=== PATIENT | male | born 1990 | race Caucasian/White ===

== ENCOUNTER 2024-09-26 02:21 | Emergency (ER) | payer SELFPAY ==
[~2024-09-26] VITALS: Ht 172.7 cm; Wt 136.1 kg
[2024-09-26 02:31] VITALS: RESP 18; TEMP 98.3
[2024-09-26] MEDS: ONDANSETRON HCL INJ 2MG/ML 2ML 2 MG/ML VIAL IV STA (02:43)
[2024-09-26 03:02] LABS: BASOPHILS % 0.3 % (0.0-1.0); EOSINOPHILS # (AUTO) 0.2 (0.0-0.4); EOSINOPHILS % 1.5 % (0.0-6.0); HEMATOCRIT 41.1 % (38.2-49.6); HEMOGLOBIN 13.5 g/dL (14.0-18.0); LYMPHOCYTES # (AUTO) 1.6 (1.0-3.2); LYMPHOCYTES % 14.9 % (18.0-39.1); MEAN CORPUSCULAR HEMOGLOBIN 28.8 pg (28-32); MEAN CORPUSCULAR HGB CONC 32.8 g/dL (31-35); MEAN CORPUSCULAR VOLUME 87.6 fL (81-99); MONOCYTES # (AUTO) 0.8 (0.2-0.8); MONOCYTES % 7.6 % (4.4-11.3); NEUTROPHILS # (AUTO) 7.9 (2.1-6.9); NEUTROPHILS % 75.4 % (38.7-80.0); PLATELET COUNT 412 x10e3/uL (140-360); RED BLOOD COUNT 4.69 x10e6/uL (4.3-5.7); RED CELL DISTRIBUTION WIDTH 13.9 % (11.7-14.4); WHITE BLOOD COUNT 10.44 x10e3/uL (4.8-10.8)
[2024-09-26 03:17] LABS: ALBUMIN 3.8 g/dL (3.5-5.0); ALBUMIN/GLOBULIN RATIO 1.2 (0.8-2.0); ANION GAP 17.1 mmol/L (8-16); BILIRUBIN,TOTAL 0.2 mg/dL (0.2-1.2); CALCIUM 8.7 mg/dL (8.4-10.2); CREATININE, SERUM 0.74 mg/dL (0.72-1.25); POTASSIUM 4.1 mmol/L (3.5-5.1); TOTAL PROTEIN 7.1 g/dL (6.5-8.1)
[2024-09-26 03:23] LABS: TROPONIN I 0.003 ng/mL (0-0.300)
[2024-09-26 03:30] VITALS: PULSE 83
[2024-09-26] MEDS ORDERED: VENTOLIN HFA18 GM INH (03:50)
[2024-09-26] MEDS ORDERED: ONDANSETRON ODT4 MG PO (03:50)
[2024-09-26] MEDS ORDERED: AZITHROMYCIN250 MG PO (03:50)
[2024-09-26] MEDS ORDERED: PREDNISONE20 MG PO (03:50)
[2024-09-26 04:01] VITALS: BP 142/92; O2SAT 100
[2024-09-26 05:34] LABS: CORONAVIRUS COVID-19 AG POSITIVE (NEGATIVE); INFLUENZA A AG NEGATIVE (NEGATIVE); INFLUENZA B AG NEGATIVE (NEGATIVE); STREPTOCOCCUS GRP A ANTIGEN NEGATIVE (NEGATIVE)
== END 2024-09-26 04:00 | disposition home or self-care (01) ==
LOC: ER 02:25
DX: R42 Dizziness and giddiness (principal); J06.9 Acute upper respiratory infection, unspecified; R11.2 Nausea with vomiting, unspecified; R05.9 Cough, unspecified; Z11.52 Encounter for screening for COVID-19
CPT/HCPCS: 36415; 71045; 80053; 82550; 83518; 83690; 83880; 84484; 85025; 87070; 87428; 99284; J2405